=== PATIENT | male | born 1950 | race Caucasian/White ===

== ENCOUNTER 2016-09-01 06:26 | Day surgery (SDC) | payer OTHER ==
[~2016-09-01 06:26] MED LIST: KETOROLAC TROMETHAMINE 0.45% 4 DROP/0.4 ML DROPERETTE OS PRN
[2016-09-01] MEDS ORDERED: MIDAZOLAM 2 MG/2 ML INJ ONE ×2 (06:40)
[2016-09-01] MEDS ORDERED: FENTANYL CITRATE INJ/PF 100 MCG/2 ML AMPUL ONE (06:40)
[2016-09-01] MEDS: CYCLOPENTOLATE 0.2%/PHENYLEPHRINE 1% OPH SOLN 2 ML OS PRN ×3 (06:47→07:05)
[2016-09-01] MEDS: TETRACAINE HCL 0.5% OPH SOLN 2 ML OS PRN ×4 (06:47→07:36)
[2016-09-01] MEDS: TROPICAMIDE 1% OPH SOLN 3 ML OS PRN ×3 (06:47→07:06)
[2016-09-01] MEDS: BESIFLOXACIN HCL 0.6% OPH SUSP 5 ML BOTTLE OS PRN ×4 (06:47→08:00)
[2016-09-01] MEDS: EPINEPHRINE INJ/PF 1 MG/1 ML AMPULE ONE ×2 (07:46)
[2016-09-01] MEDS: LIDOCAINE 1% INJ-PF (10 MG/ML) 30 ML SDV ONE ×2 (07:46)
[2016-09-01] MEDS: CHONDR SU A NA/HYALUR INTRAOC KIT (SURGICARE) ONE ×2 (07:46)
--- NOTE | 2016-09-02 06:24 | [facility] OPERATIVE REPORT E ---
[facility] Operative Report NAME: JOB RODRIGUEZ AGE: 66Y DATE OF SURGERY: 09/01/2016 ROOM: PREOPERATIVE DIAGNOSIS: CATARACT, LEFT EYE. POSTOPERATIVE DIAGNOSIS: CATARACT, LEFT EYE. OPERATION: Cataract extraction with intraocular lens implant of the left eye. SURGEON: LAXMI GARCIA M.D. ANESTHESIA: Topical. PROCEDURE: After obtaining appropriate consent, the patient's left eye was prepped and draped in sterile fashion as well as the surgeon in a sterile manner and cataract surgery was started. First a paracentesis blade was used to make a small side-port incision. Viscoelastic was used to inflate the anterior chamber. Next a 2.4 mm incision was made with the paracentesis blade. A continuous capsulorrhexis incision was made using a cystotome and Utrata forceps. Following this hydrodissection was carried out to make the lens fully loose and mobile and it was rotated 90 degrees. Following this, a wxxazf-szx-xuhyvre technique was used to phacoemulsify the lens with a CDE of 15.6. The remaining cortex was removed with irrigation/aspiration. Provisc was instilled into the capsular bag to inflate the bag. A SN60WF, 19.5 diopter lens was placed. The remaining viscoelastic material was removed with irrigation/aspiration. Following this, a 10-0 nylon suture was used to close the incision and it was found to be watertight. Vigamox was instilled in the eye and a protective shield was placed over the eye. The patient returned to the postoperative recovery in stable condition. DICTATING PHYSICIAN: LAXMI GARCIA M.D. [id number] [id number] PHY#: [id number] ID: [id number] JOB#: [id number] ACCT: [id number] cc:LAXMI GARCIA M.D. >
--- NOTE | 2016-09-02 06:29 | [facility] DISCHARGE SUMMARY E ---
[facility] Discharge Summary NAME: JOB RODRIGUEZ AGE: 66Y ADMITTED: 09/01/2016 DISCHARGED: 09/01/2016 HOSPITAL COURSE: This is a 66-year-old male who underwent cataract extraction left eye, diagnosed as cataract left eye. He underwent surgery because he was having difficulty seeing road signs. He should be on a regular diet. No bending at the waist. No heavy lifting. He should his Besivance, Ilevro, and Durezol at 3 p.m. and 8 p.m. and sleep with a rigid shield, and I will see him for a one day postoperative tomorrow. DICTATING PHYSICIAN: LAXMI GARCIA M.D. [id number] [id number] PHY#: [id number] ID: [id number] JOB#: [id number] ACCT: [id number] cc:LAXMI GARCIA M.D. >
== END 2016-09-01 09:03 | disposition home or self-care (01) ==
LOC: SC 06:26
PROVIDERS: ATTEND Internal Medicine
PROC: 08RK3JZ Replacement of Left Lens with Synthetic Substitute, Percutaneous Approach (ICD-10-PCS; principal; 2016-09-01 07:30)
DX: H25.13 Age-related nuclear cataract, bilateral (principal); H40.033 Anatomical narrow angle, bilateral; E11.3291 Type 2 diabetes mellitus with mild nonproliferative diabetic retinopathy without macular edema, right eye; E11.3592 Type 2 diabetes mellitus with proliferative diabetic retinopathy without macular edema, left eye; E11.40 Type 2 diabetes mellitus with diabetic neuropathy, unspecified; H35.372 Puckering of macula, left eye; I10 Essential (primary) hypertension; E78.00 Pure hypercholesterolemia, unspecified; Z87.891 Personal history of nicotine dependence; Z79.82 Long term (current) use of aspirin; Z79.899 Other long term (current) drug therapy; Z79.84 Long term (current) use of oral hypoglycemic drugs; Z79.4 Long term (current) use of insulin; Z79.1 Long term (current) use of non-steroidal anti-inflammatories (NSAID)
CPT/HCPCS: 66984; 82962; V2632; J2250; J3490 ×2; J0171; J3010; 142

== ENCOUNTER 2016-09-01 10:50 | Emergency (ER) | payer OTHER ==
[2016-09-01] MEDS ORDERED: ASPIRIN 81 MG TABLET, CHEWABLE PO ONE (11:08)
--- NOTE | 2016-09-01 11:12 | ER Document Report ---
ED Medical Screen (RME) - General Chief Complaint: Chest Tightness Stated Complaint: CHEST PAIN Time Seen by Provider: 09/01/16 11:08 Notes: Patient says she has been experiencing heart tightness and hurting into the back region for the past month, off and on. He underwent cataract surgery this morning and was told that his heart was beating fast and irregular and he needed to come to the emergency department. Patient says he also is experiencing some shortness of breath. Has not had a cough or cold or chest congestion. No fevers. Patient is an insulin-dependent diabetic. Hypertension. High cholesterol. Enlarged heart. Stopped smoking 6 months ago. TRAVEL OUTSIDE OF THE [place] IN LAST 30 DAYS: No - Related Data Allergies/Adverse Reactions: No Known Allergies Allergy (Verified 09/01/16 10:51) Past Medical History - Past Medical History Cardiac Medical History: Reports: Hx Hypertension Denies: Hx Coronary Artery Disease, Hx Heart Attack Pulmonary Medical History: Reports: Hx Asthma - CHILD Denies: Hx Bronchitis, Hx COPD, Hx Pneumonia Neurological Medical History: Denies: Hx Cerebrovascular Accident, Hx Seizures Renal/ Medical History: Denies: Hx Peritoneal Dialysis GI Medical History: Denies: Hx Hepatitis, Hx Hiatal Hernia, Hx Ulcer Musculoskeltal Medical History: Reports Hx Arthritis - B/L SHOULDERS Infectious Medical History: Denies: Hx Hepatitis Past Surgical History: Denies: Hx Open Heart Surgery, Hx Pacemaker - Immunizations Hx Diphtheria, Pertussis, Tetanus Vaccination: Yes
--- NOTE | 2016-09-01 11:46 | ER Document Report ---
ED Cardiac - General Mode of Arrival: Ambulatory Information source: Patient TRAVEL OUTSIDE OF THE [place] IN LAST 30 DAYS: No - HPI Patient complains to provider of: Chest pain Associated symptoms: Other - See above <ORIN RESENDIZ - Last Filed: 09/01/16 12:23> <JADE MILLS - Last Filed: 09/01/16 19:38> - General Chief Complaint: Chest Pain > 30 Stated Complaint: CHEST PAIN Time Seen by Provider: 09/01/16 11:08 Notes: Patient is a 66 year old male, with a past medical history including hypertension, hypercholesterolemia, and diabetes, who presents to the emergency department with his girlfriend complaining of chest pain. Patient was having cataract surgery this morning at the surgery center and was noted to have a high resting heart rate of 105 bpm, patient was told he needed to be cleared before they could operate on the right eye after completing the left. Patient called his PCP and was told to come to the ED. Patient states he has been having chest pain for the past month that is accompanied by shortness of breath , patient reports this is sometimes exacerbated by exertion and is not relieved by rest. Patient describes the pain as burning and radiates into his back. Patient did skip his normal medications before his procedure this morning but has since taken them before arrival. Patient denies vomiting. (ORIN RESENDIZ) - Related Data Allergies/Adverse Reactions: No Known Allergies Allergy (Verified 09/01/16 10:51) Past Medical History - General Information source: Patient - Social History Smoking Status: Never Smoker Chew tobacco use (# tins/day): No Frequency of alcohol use: None Drug Abuse: None Family History: Reviewed & Not Pertinent Patient has suicidal ideation: No Patient has homicidal ideation: No - Past Medical History Cardiac Medical History: Reports: Hx Hypercholesterolemia, Hx Hypertension Pulmonary Medical History: Reports: Hx Asthma - CHILD Endocrine Medical History: Reports: Hx Diabetes Mellitus Type 2 Musculoskeltal Medical History: Reports Hx Arthritis - B/L SHOULDERS - Immunizations Hx Diphtheria, Pertussis, Tetanus Vaccination: Yes Hx Pneumococcal Vaccination: 03/30/14 <ORIN RESENDIZ - Last Filed: 09/01/16 12:23> Review of Systems - Review of Systems Constitutional: No symptoms reported EENT: No symptoms reported Cardiovascular: See HPI, Chest pain Respiratory: See HPI, Short of breath Gastrointestinal: denies: Vomiting Genitourinary: No symptoms reported Male Genitourinary: No symptoms reported Musculoskeletal: No symptoms reported Skin: No symptoms reported Hematologic/Lymphatic: No symptoms reported Neurological/Psychological: No symptoms reported -: Yes All other systems reviewed and negative <ORIN RESENDIZ - Last Filed: 09/01/16 12:23> Physical Exam <ORIN RESENDIZ - Last Filed: 09/01/16 12:23> <JADE MILLS - Last Filed: 09/01/16 19:38> - Vital signs Vitals: Resp Pulse Ox 15 95 09/01/16 11:22 09/01/16 11:22 - Notes Notes: GENERAL: Alert, interacts well. No acute distress. HEAD: Normocephalic, atraumatic. EYES: Left pupil round and dilated consistent with IOL replacement. Right pupil round and reactive to light. ENT: Oral mucosa moist, tongue midline. NECK: Full range of motion. Supple. Trachea midline. LUNGS: Clear to auscultation bilaterally, no wheezes, rales, or rhonchi. No respiratory distress. HEART: Regular rate and rhythm. Occasional ectopic beats. No murmurs, gallops, or rubs. ABDOMEN: Soft, non-tender. Non-distended. Bowel sounds present in all 4 quadrants. EXTREMITIES: Moves all 4 extremities spontaneously. No edema, radial and dorsalis pedis pulses 2/4 bilaterally. No cyanosis. NEUROLOGICAL: Alert and oriented x3. Normal speech. Biceps and patellar DTRs 2+ bilaterally. PSYCH: Normal affect, normal mood. SKIN: Mildly diaphoretic. Warm, normal turgor. No rashes or lesions noted. ( ORIN RESENDIZ) Course - Laboratory Result Diagrams: 09/01/16 11:53 09/01/16 11:53 <ORIN RESENDIZ - Last Filed: 09/01/16 12:23> - Laboratory Result Diagrams: 09/01/16 11:53 09/01/16 11:53 <JADE MILLS - Last Filed: 09/01/16 19:38> - Re-evaluation Re-evalutation: 09/01/16 17:49 CBC shows leukocytosis of 12.6, anemia with hemoglobin 13.3 otherwise unremarkable, CMP shows some renal failure with a BUN of 24 and creatinine of 1.49, patient is uncertain whether he has a history of renal failure but he does have a primary care physician with whom he will follow as an outpatient. The magnesium of 1.0 is likely what is causing his PVCs. Patient's magnesium was repleted here and he was sent home on magnesium supplements. Cardiac enzymes are negative 2, T4 slightly low but TSH and T3 are normal. PVCs have decreased significantly and almost completely resolved since repleting the magnesium. Patient has not had any further chest pain here. Patient is referred to his primary care physician for stress testing as an outpatient. Chest x-ray shows no acute process. (JADE MILLS) - Vital Signs Vital signs: Temp Pulse Resp BP Pulse Ox 13 129/60 H 94 09/01/16 17:01 09/01/16 18:01 09/01/16 18:01 - Laboratory Laboratory results interpreted by me: 09/01/16 09/01/16 09/01/16 11:53 11:53 11:53 WBC 12.6 H RBC 4.25 L Hgb 13.3 L Absolute Lymphocytes 5.1 H BUN 24 H Creatinine 1.49 H Est GFR ( Amer) 57 L Est GFR (Non-Af Amer) 47 L Glucose 204 H Magnesium 1.0 L* Alkaline Phosphatase 33 L Creatine Kinase 248 H Free T4 09/01/16 09/01/16 11:53 15:05 WBC RBC Hgb Absolute Lymphocytes BUN Creatinine Est GFR ( Amer) Est GFR (Non-Af Amer) Glucose Magnesium Alkaline Phosphatase Creatine Kinase 217 H Free T4 0.77 L - EKG Interpretation by Me Additional EKG results interpreted by me: 09/01/16 17:50 EKG shows sinus tachycardia at a rate of 122, first-degree AV block, left anterior hemiblock, multiple PVCs and eventually turns into ventricular bigeminy , poor R-wave progression, no ST segment elevations or depressions, isolated T- wave inversions noted in aVL per my interpretation. Repeat EKG shows sinus rhythm at a rate of 80, left anterior hemiblock, poor R- wave progression, no ST segment elevations or depressions, there are T-wave inversions isolated in aVL still, all PVCs have resolved. Per my interpretation. (JADE MILLS) Discharge <ORIN RESENDIZ - Last Filed: 09/01/16 12:23> <JADE MILLS - Last Filed: 09/01/16 19:38> - Discharge Clinical Impression: Ventricular bigeminy, Hypomagnesemia, Chest pain, moderate coronary artery risk Condition: Stable Disposition: HOME, SELF-CARE Additional Instructions: Please follow-up with your primary care physician regarding the ventricular bigeminy and PVCs that she had. It appears to be coming from a low level of magnesium. We have been giving you magnesium here and some magnesium to take at home to help with this. The irregular beats on your EKG stopped after we fixed your low magnesium. Your calcium levels and potassium levels were normal. You do have some evidence of slightly lower than normal kidney function. Your primary care physician will need to recheck this in a few days. Today your heart attack enzymes were negative both times we checked them. There were no signs of heart attack in your EKG. Your primary care physician will need to arrange to have you have a stress test as an outpatient. Please return to the emergency department should she develop severely worsening chest pain or any new or concerning symptoms. Prescriptions: Magnesium Oxide 400 mg PO BID #14 tablet Scribe Attestation: 09/01/16 19:38 I personally performed the services described in the documentation, reviewed and edited the documentation which was dictated to the scribe in my presence, and it accurately records my words and actions. (JADE MILLS) Scribe Documentation - Scribe Written by Raya:: raya Marina, 09/01/16, 1222 acting as scribe for :: Magdi <ORIN RESENDIZ - Last Filed: 09/01/16 12:23>
--- NOTE | 2016-09-01 12:10 | RADIOLOGY REPORT (SQ) ---
EXAM DESCRIPTION: CHEST SINGLE VIEW COMPLETED DATE/TIME: 09/01/2016 11:40 am REASON FOR STUDY: Chest pain and short of breath. COMPARISON: None. EXAM PARAMETERS: NUMBER OF VIEWS: One view. TECHNIQUE: Single frontal radiographic view of the chest acquired. RADIATION DOSE: NA LIMITATIONS: None. FINDINGS: LUNGS AND PLEURA: No opacities, masses or pneumothorax. No pleural effusion. MEDIASTINUM AND HILAR STRUCTURES: No masses. Contour normal. HEART AND VASCULAR STRUCTURES: Heart normal in size. Normal vasculature. BONES: No acute findings. HARDWARE: None in the chest. OTHER: No other significant finding. IMPRESSION: NO ACUTE RADIOGRAPHIC FINDING IN THE CHEST. TECHNICAL DOCUMENTATION: JOB ID: [id number]
[2016-09-01 12:13] LABS: ABSOLUTE BASOPHILS # (AUTO) 0.1 10^3/uL (0.0-0.2); ABSOLUTE EOSINOPHILS # (AUTO) 0.3 10^3/uL (0.0-0.6); ABSOLUTE LYMPHOCYTES (AUTO) 5.1 10^3/uL (0.5-4.7); ABSOLUTE MONOCYTES (AUTO) 0.8 10^3/uL (0.1-1.4); ABSOLUTE NEUT (AUTO) 6.4 10^3/uL (1.7-8.2); BASOPHILS % (AUTO) 0.8 % (0-2); EOSINOPHILS % (AUTO) 2.1 % (0-6); HEMATOCRIT 40.1 % (37.9-51.0); HEMOGLOBIN 13.3 g/dL (13.5-17.0); HGB HCT DIFFERENCE -0.2; LYMPHOCYTES % (AUTO) 40.4 % (13-45); MEAN CORPUSCULAR HEMOGLOBIN 31.4 pg (27.0-33.4); MEAN CORPUSCULAR HGB CONC 33.2 g/dL (32.0-36.0); MEAN CORPUSCULAR VOLUME 95 fl (80-97); MONOCYTES % (AUTO) 6.3 % (3-13); RED BLOOD COUNT 4.25 10^6/uL (4.35-5.55); RED CELL DISTRIBUTION WIDTH 12.2 % (11.5-14.0); SEGMENTED NEUTROPHILS % (AUTO) 50.4 % (42-78); WHITE BLOOD COUNT 12.6 10^3/uL (4.0-10.5)
[2016-09-01 12:27] LABS: ALANINE AMINOTRANSFERASE 38 U/L (21-72); ALBUMIN 4.4 g/dL (3.5-5.0); ALKALINE PHOSPHATASE 33 U/L (38-126); ANION GAP 15 (5-19); ASPARTATE AMINO TRANSFERASE 30 U/L (17-59); BILIRUBIN,DIRECT 0.4 mg/dL (0.0-0.4); BILIRUBIN,TOTAL 0.5 mg/dL (0.2-1.3); BLOOD UREA NITROGEN 24 mg/dL (7-20); CALCIUM 9.2 mg/dL (8.4-10.2); CARBON DIOXIDE 24 mmol/L (22-30); CHLORIDE 102 mmol/L (98-107); CREATINE KINASE 248 U/L (55-170); CREATININE RESULT 1.49 mg/dL (0.52-1.25); GLUCOSE 204 mg/dL (75-110); POTASSIUM 4.5 mmol/L (3.6-5.0); SODIUM 140.5 mmol/L (137-145); TOTAL PROTEIN 7.4 g/dL (6.3-8.2)
[2016-09-01 12:38] LABS: CREATINE KINASE MB 2.84 ng/mL (<4.55); TROPONIN I 0.024 ng/mL
[2016-09-01 12:42] LABS: FREE T3 4.21 pg/mL (2.77-5.27)
[2016-09-01 12:55] LABS: THYROID STIMULATING HORMONE 3.1 uIU/mL (0.47-4.68)
[2016-09-01] MEDS: MAGNESIUM SULFATE/D5W 100 ML IV SCH ×2 (13:37→15:00)
--- NOTE | 2016-09-01 18:09 | EKG REPORT ---
SEVERITY:- ABNORMAL ECG - SINUS RHYTHM LEFT ANTERIOR FASCICULAR BLOCK NONSPECIFIC ST-T CHANGES LATERAL LEADS : Confirmed by: Vineet Lyon MD 01-Sep-2016 18:08:40
--- NOTE | 2016-09-01 18:10 | EKG REPORT ---
SEVERITY:- ABNORMAL ECG - SINUS TACHYCARDIA VENTRICULAR BIGEMINY FIRST DEGREE AV BLOCK LEFT ANTERIOR FASCICULAR BLOCK : Confirmed by: Vineet Lyon MD 01-Sep-2016 18:09:27
[2016-09-01 18:25] VITALS: BP 129/60
== END 2016-09-01 18:25 | disposition home or self-care (01) ==
LOC: ER 10:50
DX: R00.8 Other abnormalities of heart beat (principal); E83.42 Hypomagnesemia; R07.9 Chest pain, unspecified; I10 Essential (primary) hypertension; E78.00 Pure hypercholesterolemia, unspecified; E11.9 Type 2 diabetes mellitus without complications
CPT/HCPCS: 93005; 99285; 96365; 96366; 36415; 84439; 82553; 82550; 83735; 84443; 85025; 80053; 84484; 84481; 71010; 93010; J3475

== ENCOUNTER → 2016-10-25 | Outpatient (CLI) | payer OTHER ==
[~2016-10-25] MED LIST changes: -KETOROLAC TROMETHAMINE 0.45% 4 DROP/0.4 ML DROPERETTE OS PRN; +REGADENOSON INJ 0.4 MG/5 ML DISP.SYRIN IV ONE
--- NOTE | 2016-10-26 18:21 | RADIOLOGY REPORT ---
STRESS TEST REPORT PATIENT NAME: JOB RODRIGUEZ ROOM#: DATE OF SERVICE: 10/25/2016 AGE: 66Y ORDER#: [id number] REFERRING MD: RAYSA RODRIGUEZ, PT, IN CLINIC INDICATION: Assessment of chest pains. PROCEDURE PERFORMED: Rest/stress single-isotope Cardiolite SPECT imaging with an IV Lexiscan stress and gated SPECT imaging. CLINICAL HISTORY: This is a 66-year-old male with no known coronary artery disease. Patient has cardiac risk factors of diabetes, hypertension and hypercholesterolemia, currently complains of chest pains. REPORT: Patient received IV Lexiscan 0.4 mg infused over 10 seconds and flushed. The resting heart rate was 95 BPM and increased to 100 BPM at end infusion. The resting blood pressure was 122/65 and increased to 161/58 at end infusion. The patient absolutely no symptoms. The resting 12-lead EKG showed sinus rhythm with frequent PVCs, 10-56 per minute. First degree AV block with left anterior fascicular block, no ST changes. At end infusion, no ST changes were seen, PVC remained basically the same. Myocardial perfusion imaging was performed at rest 60 minutes following the injection of 14.96 mCi of Cardiolite. Repeat scanning of rest images had to be done due to patient falling asleep and heart rate going down to bradycardia. Ten seconds after the IV Lexiscan injection, patient was injected with 46.8 mCi of Cardiolite and flushed. Gated post-stress tomographic imaging was performed 60 minutes after stress. FINDINGS: The overall quality of the study is poor. The left ventricular cavity is noted to be enlarged more on the stress than the rest, there is transient ischemic dilatation of the left ventricle. The SPECT images showed a moderate area of moderate reversible ischemia in the anterior wall (diagonal territory), there is a small area of moderate reversible ischemia also seen in the apex of the left ventricle. There is a moderate area of moderately fixed perfusion defect in the basal inferior wall. The gated SPECT imaging showed moderate reduced motion contraction in the basal inferior wall. The left ventricular ejection fraction is calculated to be 41%. IMPRESSION: Myocardial perfusion imaging is abnormal. There is evidence of transient ischemic dilatation of the left ventricle. This suggests triple vessel disease or critical stenosis of a coronary artery. There are two areas of moderate reversible ischemia, one in the anterior wall and one in the apex. There is a moderate area of moderately fixed perfusion defect in the basal inferior wall. The overall left ventricular systolic function was mildly impaired at LVEF 41% with reduced motion and contraction in the base of the inferior wall. No prior studies for comparison. INTERPRETING PHYSICIAN: JOSE R COREAS M.D. /: 1951M TT: [id number] ID: [id number] /: [id number] TD: [id number] JOB: [id number] cc:Karyna [facility] > [facility]
== END ==
LOC: RAD 06:35
PROVIDERS: ATTEND Physical Therapist
DX: R07.89 Other chest pain (principal); I10 Essential (primary) hypertension; E78.00 Pure hypercholesterolemia, unspecified
CPT/HCPCS: 93017; 78452; A9500; J2785; Q9969

== ENCOUNTER → 2017-06-23 | Outpatient (CLI) | payer OTHER ==
[2017-06-23 12:14] LABS: ABSOLUTE BASOPHILS # (AUTO) 0.1 10^3/uL (0.0-0.2); ABSOLUTE EOSINOPHILS # (AUTO) 0.2 10^3/uL (0.0-0.6); ABSOLUTE LYMPHOCYTES (AUTO) 2.9 10^3/uL (0.5-4.7); ABSOLUTE MONOCYTES (AUTO) 0.6 10^3/uL (0.1-1.4); BASOPHILS % (AUTO) 0.6 % (0-2); EOSINOPHILS % (AUTO) 2.2 % (0-6); HEMATOCRIT 42.4 % (37.9-51.0); HEMOGLOBIN 14.4 g/dL (13.5-17.0); LYMPHOCYTES % (AUTO) 26.7 % (13-45); MEAN CORPUSCULAR HEMOGLOBIN 31.4 pg (27.0-33.4); MEAN CORPUSCULAR HGB CONC 33.8 g/dL (32.0-36.0); MEAN CORPUSCULAR VOLUME 93 fl (80-97); MONOCYTES % (AUTO) 5.9 % (3-13); PLATELET COUNT 248 10^3/uL (150-450); RED BLOOD COUNT 4.57 10^6/uL (4.35-5.55); RED CELL DISTRIBUTION WIDTH 12.8 % (11.5-14.0); SEGMENTED NEUTROPHILS % (AUTO) 64.6 % (42-78); TOTAL CELLS COUNTED % (AUTO) 100 %; WHITE BLOOD COUNT 10.8 10^3/uL (4.0-10.5)
[2017-06-23 12:17] LABS: INTERNATIONAL RATION (INR) 0.84; PROTHROMBIN TIME 11.9 SEC (11.4-15.4)
[2017-06-23 12:33] LABS: ANION GAP 14 (5-19); BLOOD UREA NITROGEN 20 mg/dL (7-20); CARBON DIOXIDE 30 mmol/L (22-30); CHLORIDE 98 mmol/L (98-107); GLUCOSE 223 mg/dL (75-110); POTASSIUM 5.3 mmol/L (3.6-5.0); SODIUM 141.5 mmol/L (137-145)
== END ==
LOC: OD 11:13
PROVIDERS: ATTEND Internal Medicine
DX: I25.118 Atherosclerotic heart disease of native coronary artery with other forms of angina pectoris (principal); I10 Essential (primary) hypertension; E78.4 Other hyperlipidemia; R07.2 Precordial pain; R06.02 Shortness of breath; E11.8 Type 2 diabetes mellitus with unspecified complications; R94.30 Abnormal result of cardiovascular function study, unspecified; Z79.899 Other long term (current) drug therapy
CPT/HCPCS: 36415; 80051; 82565; 82947; 83735; 84520; 85025; 85610; 85730

== ENCOUNTER 2018-01-25 07:45 | Day surgery (SDC) | payer OTHER ==
[~2018-01-25 07:45] MED LIST changes: +KETOROLAC TROMETHAMINE 0.45% 4 DROP/0.4 ML DROPERETTE OD PRN; +LIDOCAINE 1% INJ-PF (10 MG/ML) 30 ML SDV ONE; +MIDAZOLAM 2 MG/2 ML INJ ONE; -REGADENOSON INJ 0.4 MG/5 ML DISP.SYRIN IV ONE
[2018-01-25] MEDS: BESIFLOXACIN HCL 0.6% OPH SUSP 5 ML BOTTLE OD PRN ×4 (07:49→08:49)
[2018-01-25] MEDS: CYCLOPENTOLATE 0.2%/PHENYLEPHRINE 1% OPH SOLN 2 ML OD PRN ×3 (07:49→08:09)
[2018-01-25] MEDS: TROPICAMIDE 1% OPH SOLN 3 ML OD PRN ×3 (07:49→08:09)
[2018-01-25] MEDS: TETRACAINE HCL 0.5% OPH SOLN 4 ML OD PRN ×4 (07:50→08:23)
[2018-01-25] MEDS: CHONDR SU A NA/HYALUR INTRAOC KIT (SURGICARE) ONE ×2 (08:09→08:37)
[2018-01-25] MEDS: LIDOCAINE 1%/PHENYLEPHRINE 1.5% 1 ML VIAL ONE ×2 (08:10→08:37)
[2018-01-25] MEDS: EPINEPHRINE INJ/PF 1 MG/1 ML AMPULE ONE ×2 (08:10→08:37)
--- NOTE | 2018-01-25 19:51 | [facility] OPERATIVE REPORT E ---
[facility] Operative Report NAME: JOB RODRIGUEZ AGE: 67Y DATE OF SURGERY: 01/25/2018 ROOM: PREOPERATIVE DIAGNOSIS: CATARACT, RIGHT EYE. POSTOPERATIVE DIAGNOSIS: CATARACT, RIGHT EYE. OPERATION: Cataract extraction with insertion of an IOL of the right eye. SURGEON: LAXMI GARCIA M.D. ANESTHESIA: Topical. PROCEDURE: After obtaining appropriate consent, the patient's right eye was prepped and draped in sterile fashion as well as the surgeon in a sterile manner and cataract surgery was started. First a paracentesis blade was used to make a side-port incision. Viscoelastic was used to inflate the anterior chamber. Next a 2.4 mm incision was made with a 2.4 mm blade, clear corneal temporally. A continuous capsulorrhexis was made using a cystotome and Utrata forceps. Following this hydrodissection was carried out to make the lens fully loose and mobile and it was rotated 90 degrees. Following this, a nqpevr-qiu-nojpdkv technique was used to phacoemulsify the lens with a CDE of 8.98. The remaining cortex was removed with irrigation/aspiration. Provisc was instilled into the capsular bag to inflate the bag. A SN60WF, 20.0 diopter lens was placed. The remaining viscoelastic material was removed with irrigation/aspiration. Following this, the incision was found to be watertight. Besivance was instilled into the eye and a protective shield was placed over the eye. The patient returned to the postoperative recovery in stable condition. DICTATING PHYSICIAN: LAXMI GARCIA M.D. [id number] [id number] PHY#: [id number] ID: [id number] JOB#: [id number] ACCT: [id number] cc:LAXMI GARCIA M.D. >
--- NOTE | 2018-01-25 19:53 | [facility] DISCHARGE SUMMARY E ---
[facility] Discharge Summary NAME: JOB RODRIGUEZ AGE: 67Y ADMITTED: 01/25/2018 DISCHARGED: 01/25/2018 DIAGNOSIS: Cataract, right eye. SUMMARY: This is a 67-year-old male who underwent cataract extraction, right eye. He underwent surgery because he was having difficulty seeing road signs and small print. DISCHARGE INSTRUCTIONS: He should be on a regular diet, no bending at his waist, and no heavy lifting. He should use his Pred Forte, Ketorolac, and Vigamox at 3 p.m. and 8 p.m. and sleep with a rigid shield. I will see him for his 1-day postoperative tomorrow. DICTATING PHYSICIAN: LAXMI GARCIA M.D. [id number] [id number] PHY#: [id number] ID: [id number] JOB#: [id number] ACCT: [id number] cc:LAXMI GARCIA M.D. >
== END 2018-01-25 09:35 | disposition home or self-care (01) ==
LOC: SC 07:45
PROVIDERS: ATTEND Internal Medicine
DX: H25.11 Age-related nuclear cataract, right eye (principal); I10 Essential (primary) hypertension; E78.00 Pure hypercholesterolemia, unspecified; E11.40 Type 2 diabetes mellitus with diabetic neuropathy, unspecified; Z72.0 Tobacco use; Z79.84 Long term (current) use of oral hypoglycemic drugs
CPT/HCPCS: 82962; 66984; V2632; J2250; J3490 ×2; J0171; J2370; 142

== ENCOUNTER 2018-07-07 18:20 | Emergency (ER) | payer OTHER ==
--- NOTE | 2018-07-07 18:40 | ER Document Report ---
ED Medical Screen (RME) - General Chief Complaint: Leg Swelling Stated Complaint: FOOT PAIN Time Seen by Provider: 07/07/18 18:35 Primary Care Provider: EVY HAWTHORNE FNP [Primary Care Provider] - Follow up as needed Mode of Arrival: Ambulatory Information source: Patient Notes: Patient is a 68-year-old male presenting with chief complaint of pain, swelling and redness to his left foot. Patient reports he is a diabetic and has diabetic neuropathy. He also states that he fell off of a 6 foot ladder approximately 10 days ago when all of the pain and swelling first started. He states he was standing towards the top of the ladder when he fell. Patient denies seeking any medical treatment at this time. Patient reports pain now radiates from his foot up into his upper leg. He denies any history of DVTs or PEs, he is denies any recent travel. Exam: Significant swelling and erythema noted to left foot. I have greeted and performed a rapid initial assessment of this patient. A comprehensive ED assessment and evaluation of the patient, analysis of test results and completion of the medical decision making process will be conducted by additional ED providers. Dictation of this chart was performed using voice recognition software; therefore, there may be some unintended grammatical errors. TRAVEL OUTSIDE OF THE [place] IN LAST 30 DAYS: No - Related Data Allergies/Adverse Reactions: No Known Allergies Allergy (Verified 01/16/18 13:03) Past Medical History - Past Medical History Cardiac Medical History: Reports: Hx Hypercholesterolemia, Hx Hypertension Denies: Hx Coronary Artery Disease, Hx Heart Attack Pulmonary Medical History: Reports: Hx Asthma - CHILD Denies: Hx Bronchitis, Hx COPD, Hx Pneumonia Neurological Medical History: Denies: Hx Cerebrovascular Accident, Hx Seizures Endocrine Medical History: Reports: Hx Diabetes Mellitus Type 2 Renal/ Medical History: Denies: Hx Peritoneal Dialysis GI Medical History: Denies: Hx Hepatitis, Hx Hiatal Hernia, Hx Ulcer Musculoskeltal Medical History: Reports Hx Arthritis - B/L SHOULDERS Infectious Medical History: Denies: Hx Hepatitis Past Surgical History: Denies: Hx Open Heart Surgery, Hx Pacemaker - Immunizations Hx Diphtheria, Pertussis, Tetanus Vaccination: Yes Physical Exam - Vital signs Vitals: Temp Pulse Resp BP Pulse Ox 98.6 F 104 H 20 145/60 H 95 07/07/18 18:31 07/07/18 18:31 07/07/18 18:31 07/07/18 18:31 07/07/18 18:31 Course - Vital Signs Vital signs: Temp Pulse Resp BP Pulse Ox 98.6 F 104 H 20 145/60 H 95 07/07/18 18:31 07/07/18 18:31 07/07/18 18:31 07/07/18 18:31 07/07/18 18:31 Doctor's Discharge - Discharge Referrals: EVY HAWTHORNE FNP [Primary Care Provider] - Follow up as needed
[2018-07-07 18:59] LABS: ABSOLUTE BASOPHILS # (AUTO) 0.2 10^3/uL (0.0-0.2); ABSOLUTE EOSINOPHILS # (AUTO) 0.3 10^3/uL (0.0-0.6); ABSOLUTE LYMPHOCYTES (AUTO) 2.2 10^3/uL (0.5-4.7); ABSOLUTE MONOCYTES (AUTO) 0.8 10^3/uL (0.1-1.4); BASOPHILS % (AUTO) 1.5 % (0-2); EOSINOPHILS % (AUTO) 2.1 % (0-6); HEMATOCRIT 33.7 % (37.9-51.0); HEMOGLOBIN 11.4 g/dL (13.5-17.0); LYMPHOCYTES % (AUTO) 17.7 % (13-45); MEAN CORPUSCULAR HGB CONC 33.7 g/dL (32.0-36.0); MEAN CORPUSCULAR VOLUME 95 fl (80-97); MONOCYTES % (AUTO) 6.7 % (3-13); PLATELET COUNT 350 10^3/uL (150-450); RED BLOOD COUNT 3.55 10^6/uL (4.35-5.55); RED CELL DISTRIBUTION WIDTH 12.7 % (11.5-14.0); TOTAL CELLS COUNTED % (AUTO) 100 %; WHITE BLOOD COUNT 12.5 10^3/uL (4.0-10.5)
--- NOTE | 2018-07-07 19:09 | RADIOLOGY REPORT (SQ) ---
EXAM DESCRIPTION: FOOT LEFT COMPLETE COMPLETED DATE/TIME: 07/07/2018 6:49 pm REASON FOR STUDY: pain, erythema, swelling, hx of fall . Pain lateral foot status post fall 10 day s ago COMPARISON: None. NUMBER OF VIEWS: Three views. TECHNIQUE: AP, lateral and oblique radiographic images acquired of the left foot. LIMITATIONS: None. FINDINGS: MINERALIZATION: Normal. BONES: There is a displaced fracture at the base of the 1st metatarsal. There is widening between th e bases of the 1st and 2nd metatarsals, suggestive of Lisfranc injury. There is a displaced comminut ed fracture at the base of the 2nd metatarsal. Linear lucency at the base of the 3rd metatarsal, sug gestive of a nondisplaced fracture. There is a mildly displaced fracture at the base of the 4th meta tarsal. There is a mildly displaced fracture at the base of the 5th metatarsal. There is a linear l ucency at the cuboid. Degenerative changes are seen at the 1st interphalangeal joint and metatarsophalangeal joint. Degene rative changes are also seen at the midfoot and hindfoot. There is calcaneal enthesopathy. There is a healed fracture of the distal fibula. SOFT TISSUES: There is diffuse soft tissue swelling. IMPRESSION: Fractures at the bases of the 1st, 2nd, 3rd, 4th and 5th metatarsals with Lisfranc injur y. Linear lucency at the cuboid, a nondisplaced fracture cannot be excluded. Diffuse soft tissue sw elling at the left foot. TECHNICAL DOCUMENTATION: JOB ID: [id number] [id number] 2010 [employer]- All Rights Reserved Reading location - IP/workstation name: [email or web address]
[2018-07-07 19:26] LABS: ALANINE AMINOTRANSFERASE 34 U/L (21-72); ALBUMIN 4.2 g/dL (3.5-5.0); ALKALINE PHOSPHATASE 38 U/L (38-126); ANION GAP 16 (5-19); ASPARTATE AMINO TRANSFERASE 33 U/L (17-59); BILIRUBIN,DIRECT 0.3 mg/dL (0.0-0.4); BILIRUBIN,TOTAL 0.4 mg/dL (0.2-1.3); BLOOD UREA NITROGEN 50 mg/dL (7-20); CALCIUM 9.6 mg/dL (8.4-10.2); CARBON DIOXIDE 26 mmol/L (22-30); CHLORIDE 96 mmol/L (98-107); GLUCOSE 308 mg/dL (75-110); POTASSIUM 4.9 mmol/L (3.6-5.0); SODIUM 138.2 mmol/L (137-145); TOTAL PROTEIN 7.2 g/dL (6.3-8.2)
--- NOTE | 2018-07-07 20:11 | ER Document Report ---
ED General - General Chief Complaint: Leg Swelling Stated Complaint: FOOT PAIN Time Seen by Provider: 07/07/18 18:35 Primary Care Provider: EVY HAWTHORNE FNP [Primary Care Provider] - Follow up as needed MARTHA OVALLES DO [ACTIVE STAFF] - 07/09/18 Mode of Arrival: Ambulatory Notes: Patient is a 68-year-old male with past medical history of diabetes, hypertension, peripheral neuropathy who presents with 10 days of swelling and pain to the left foot. The patient reports that this pain started after he fell into a ditch by the mailbox in the front of his house. He then states he fell again while climbing a ladder falling approximately 6 feet and landing on his feet. He states the pain was quite mild but has continued to be global, throbbing, constant discomfort mild in nature to the entirety of the left foot. Has continued to walk on the foot normally. No obvious worsening factors to his pain. Denies any injury to any of the occasion. Came to the emergency department today at the behest of his who is concerned about the degree of swelling and that this is not improving. Has not seen his primary care doctor regarding today's concerns. TRAVEL OUTSIDE OF THE [place] IN LAST 30 DAYS: No - Related Data Allergies/Adverse Reactions: No Known Allergies Allergy (Verified 01/16/18 13:03) Past Medical History - General Information source: Patient - Social History Smoking Status: Never Smoker Frequency of alcohol use: None Drug Abuse: None Lives with: Spouse/Significant other Family History: Reviewed & Not Pertinent Patient has suicidal ideation: No Patient has homicidal ideation: No - Past Medical History Cardiac Medical History: Reports: Hx Hypercholesterolemia, Hx Hypertension Denies: Hx Coronary Artery Disease, Hx Heart Attack Pulmonary Medical History: Reports: Hx Asthma - CHILD Denies: Hx Bronchitis, Hx COPD, Hx Pneumonia Neurological Medical History: Denies: Hx Cerebrovascular Accident, Hx Seizures Endocrine Medical History: Reports: Hx Diabetes Mellitus Type 2 Renal/ Medical History: Denies: Hx Peritoneal Dialysis GI Medical History: Denies: Hx Hepatitis, Hx Hiatal Hernia, Hx Ulcer Musculoskeletal Medical History: Reports Hx Arthritis - B/L SHOULDERS Infectious Medical History: Denies: Hx Hepatitis Past Surgical History: Denies: Hx Open Heart Surgery, Hx Pacemaker - Immunizations Hx Diphtheria, Pertussis, Tetanus Vaccination: Yes Hx Pneumococcal Vaccination: 03/30/14 Review of Systems - Review of Systems Notes: Constitutional: Negative for fever. HENT: Negative for sore throat. Eyes: Negative for visual changes. Cardiovascular: Negative for chest pain. Respiratory: Negative for shortness of breath. Gastrointestinal: Negative for abdominal pain, vomiting or diarrhea. Genitourinary: Negative for dysuria. Musculoskeletal: Positive for left foot pain and swelling Skin: Negative for rash. Neurological: Negative for headaches, weakness or numbness. 10 point ROS negative except as marked above and in HPI. Physical Exam - Vital signs Vitals: Temp Pulse Resp BP Pulse Ox 98.6 F 104 H 20 145/60 H 95 07/07/18 18:31 07/07/18 18:31 07/07/18 18:31 07/07/18 18:31 07/07/18 18:31 Interpretation: Hypertensive, Tachycardic Notes: PHYSICAL EXAMINATION: GENERAL: Well-appearing, well-nourished and in no acute distress. HEAD: Atraumatic, normocephalic. EYES: Pupils equal round and reactive to light, extraocular movements intact, sclera anicteric, conjunctiva are normal. ENT: nares patent, oropharynx clear without exudates. Moist mucous membranes. NECK: Normal range of motion, supple without lymphadenopathy LUNGS: Breath sounds clear to auscultation bilaterally and equal. No wheezes rales or rhonchi. HEART: Regular rate and rhythm without murmurs, 2+ DP pulses bilaterally ABDOMEN: Soft, nontender, normoactive bowel sounds. No guarding, no rebound. No masses appreciated. EXTREMITIES: There is marked swelling over the mid dorsum of the left foot. Patient has full dorsi and plantar flexion of all toes of the left foot as well as dorsi and plantarflexion of the ankle. NEUROLOGICAL: No focal neurological deficits. Moves all extremities spontaneously and on command. PSYCH: Normal mood, normal affect. SKIN: Warm, Dry, normal turgor, diffuse swelling and erythema over the dorsum of the left midfoot Course - Re-evaluation Re-evalutation: 07/07/18 20:05 Patient presents after a fall 10 days ago sustaining a Lisfranc fracture and fractures of all metatarsals of the left foot. He may also have a cuboid fracture. Unfortunately the patient has such advanced peripheral neuropathy that he has not been able to feel this injury at all and has been walking around on the fracture for at least 10 days. I have immediately advised patient to stop all weightbearing. I have been placed in a short leg posterior splint and I have contacted orthopedic surgeon at [facility] to arrange for close follow-up. Patient does have good capillary refill, 2+ DP pulse. Neurovascular intact. 07/07/18 20:20 I discussed this case with Dr. Dean from [facility] orthopedic surgery. He states the patient can follow-up in the clinic early next week. I provided the patient with this contact information. Patient has been placed in a short leg posterior splint, has been strongly emphasized that he is not to bear weight. I also emphasized the need for close follow-up on Mo nday. At this time will discharge with return precautions and follow-up recommendations. Verbal discharge instructions given a the bedside and opportunity for questions given. Medication warnings reviewed. Patient is in agreement with this plan and has verbalized understanding of return precautions and the need for orthopedic surgical follow-up early next week. - Vital Signs Vital signs: Temp Pulse Resp BP Pulse Ox 98.4 F 100 20 140/59 H 94 07/07/18 21:09 07/07/18 21:09 07/07/18 21:09 07/07/18 21:09 07/07/18 21:09 - Laboratory Result Diagrams: 07/07/18 18:48 07/07/18 18:48 Laboratory results interpreted by me: 07/07/18 07/07/18 18:48 18:48 WBC 12.5 H RBC 3.55 L Hgb 11.4 L Hct 33.7 L Absolute Neutrophils 9.0 H Chloride 96 L BUN 50 H Creatinine 2.68 H Est GFR ( Amer) 29 L Est GFR (Non-Af Amer) 24 L Glucose 308 H - Diagnostic Test Radiology reviewed: Image reviewed, Reports reviewed Radiology results interpreted by me: 07/07/18 20:11 Left foot x-ray: Fractures of all metatarsals of the left foot with associated Lisfranc fracture Procedures - Immobilization Left Foot Pre-Proc Neuro Vasc Exam: Normal Immobilizer type: Short Leg Posterior Performed by: Provider assisted Post-Proc Neuro Vasc Exam: Normal Alignment checked and good: Yes Discharge - Discharge Clinical Impression: Lisfranc fracture Multiple closed fractures of metatarsal bone Qualifiers: Encounter type: initial encounter Laterality: left Qualified Code(s): S92.302A - Fracture of unspecified metatarsal bone(s), left foot, initial encounter for closed fracture Condition: Stable Disposition: HOME, SELF-CARE Additional Instructions: You need to follow-up with orthopedic surgery early next week. I have spoken to Dr. Dean on with orthopedic surgeons with [facility]. He states that you can contact the clinic at [phone]. Address is [address] [place] [address] in [facility]. I have also included contact information for our local orthopedic surgeons who may also be able to see you e chrystal next week. Do not bear weight on your foot anytime to any degree. Keep the splint on until you are seen by orthopedic surgery. Return for increasing pain, increasing swelling or deformity to the area, or any other symptoms that are worrisome to you. Referrals: EVY HAWTHORNE FNP [Primary Care Provider] - Follow up as needed MARTHA OVALLES DO [ACTIVE STAFF] - 07/09/18
[2018-07-07 21:13] VITALS: BP 140/59
== END 2018-07-07 21:13 | disposition home or self-care (01) ==
LOC: ER 18:20
PROC: 2W3RX1Z Immobilization of Left Lower Leg using Splint (ICD-10-PCS; principal; 2018-07-07)
DX: S93.326A Dislocation of tarsometatarsal joint of unspecified foot, initial encounter (principal); S92.302A Fracture of unspecified metatarsal bone(s), left foot, initial encounter for closed fracture; M79.89 Other specified soft tissue disorders; M79.672 Pain in left foot; W19.XXXA Unspecified fall, initial encounter; I10 Essential (primary) hypertension; E11.42 Type 2 diabetes mellitus with diabetic polyneuropathy; J45.909 Unspecified asthma, uncomplicated
CPT/HCPCS: 36415; 80053; 85025; 99283

== ENCOUNTER 2018-07-13 16:36 | Emergency (ER) | payer OTHER, MEDICARE ==
[2018-07-13 16:45] VITALS: BP 164/81
--- NOTE | 2018-07-13 17:19 | ER Document Report ---
ED Medical Screen (RME) - General Chief Complaint: Foot Injury Stated Complaint: FOOT INJURY Time Seen by Provider: 07/13/18 17:11 Primary Care Provider: LOY JONAS MD [NO LOCAL MD] - Follow up as needed Mode of Arrival: Wheelchair Information source: Patient Notes: 68-year-old male presented to ED for follow-up on his Lisfranc fracture to his left foot on 07/07/2018. He states he has been walking on his foot on the heel of the foot and noted to go to the bathroom. He states he misunderstood the instructions that he needed to follow-up with Dr. Jonas in [place] and tried to go to [facility] for surgery. They told him that he could not have the surgery done at their facility he needed to go to [place]. He has returned today for treatment. I have consulted Dr. Telles who is speaking with the patient at this time. TRAVEL OUTSIDE OF THE [place] IN LAST 30 DAYS: No - Related Data Allergies/Adverse Reactions: No Known Allergies Allergy (Verified 07/13/18 16:36) Past Medical History - Social History Frequency of alcohol use: None Drug Abuse: None - Past Medical History Cardiac Medical History: Reports: Hx Hypercholesterolemia, Hx Hypertension Denies: Hx Coronary Artery Disease, Hx Heart Attack Pulmonary Medical History: Reports: Hx Asthma - CHILD Denies: Hx Bronchitis, Hx COPD, Hx Pneumonia Neurological Medical History: Denies: Hx Cerebrovascular Accident, Hx Seizures Endocrine Medical History: Reports: Hx Diabetes Mellitus Type 2 Renal/ Medical History: Denies: Hx Peritoneal Dialysis GI Medical History: Denies: Hx Hepatitis, Hx Hiatal Hernia, Hx Ulcer Musculoskeltal Medical History: Reports Hx Arthritis - B/L SHOULDERS Infectious Medical History: Denies: Hx Hepatitis Past Surgical History: Denies: Hx Open Heart Surgery, Hx Pacemaker - Immunizations Hx Diphtheria, Pertussis, Tetanus Vaccination: Yes Physical Exam - Vital signs Vitals: Temp Pulse Resp BP Pulse Ox 99.2 F 93 15 164/81 H 95 07/13/18 16:44 07/13/18 16:44 07/13/18 16:44 07/13/18 16:44 07/13/18 16:44 Course - Vital Signs Vital signs: Temp Pulse Resp BP Pulse Ox 99.2 F 93 15 164/81 H 95 07/13/18 16:44 07/13/18 16:44 07/13/18 16:44 07/13/18 16:44 07/13/18 16:44 Doctor's Discharge - Discharge Clinical Impression: Lisfranc fracture Condition: Good Disposition: HOME, SELF-CARE Additional Instructions: Please use crutches. No weight bearing to the affected foot. Please make an a ppointment with the orthopedic surgeons as instructed as this will require outpatient follow-up. It may take several weeks for you to get an appointment. Until then it is still non weight bearing. Referrals: LOY JONAS MD [NO LOCAL MD] - Follow up as needed
--- NOTE | 2018-07-13 18:01 | RADIOLOGY REPORT (SQ) ---
EXAM DESCRIPTION: ANKLE LEFT COMPLETE COMPLETED DATE/TIME: 07/13/2018 5:53 pm REASON FOR STUDY: Fracture 07/07 has not had follow-up yet COMPARISON: None. NUMBER OF VIEWS: Three views. TECHNIQUE: AP, lateral, and oblique radiographic images acquired of the left ankle. LIMITATIONS: None. FINDINGS: MINERALIZATION: Normal. BONES: There is slight deformity of the distal fibula suggesting a prior injury. There is a transver se fracture of the base of the 5th metatarsal. JOINTS: No effusions. SOFT TISSUES: No soft tissue swelling. No foreign body. OTHER: No other significant finding. IMPRESSION: 5th metatarsal fracture. TECHNICAL DOCUMENTATION: JOB ID: [id number] [employer]- All Rights Reserved Reading location - IP/workstation name: [email or web address]
--- NOTE | 2018-07-13 18:04 | RADIOLOGY REPORT (SQ) ---
EXAM DESCRIPTION: FOOT LEFT COMPLETE COMPLETED DATE/TIME: 07/13/2018 5:53 pm REASON FOR STUDY: Fracture 07/07 has not had follow-up yet COMPARISON: None. NUMBER OF VIEWS: Three views. TECHNIQUE: AP, lateral and oblique radiographic images acquired of the left foot. LIMITATIONS: None. FINDINGS: MINERALIZATION: Normal. BONES: There is a transverse fracture of the base of the 5th metatarsal. There is fracture of the ba se of the 2nd metatarsal. There is widening of the space between the 1st and 2nd metatarsals. There is medial displacement of the base of the 1st metatarsal. JOINTS: No effusions. SOFT TISSUES: No soft tissue swelling. No foreign body. OTHER: No other significant finding. IMPRESSION: Lisfranc injury with fractures as described. TECHNICAL DOCUMENTATION: JOB ID: [id number] [employer]- All Rights Reserved Reading location - IP/workstation name: [email or web address]
--- NOTE | 2018-07-13 20:03 | ER Document Report ---
ED Extremity Problem, Lower - General Chief Complaint: Foot Injury Stated Complaint: FOOT INJURY Time Seen by Provider: 07/13/18 17:11 Primary Care Provider: LOY JONAS MD [NO LOCAL MD] - Follow up as needed Mode of Arrival: Wheelchair Notes: 68-year-old male to the emergency department chief complaint of "I need to be seen by the orthopedic surgeon to have my foot fix". Patient was seen here approximately a week ago and diagnosed with a Lisfranc fracture. Did not see the recommended orthopedic surgeon in follow-up. States that his splint is wet and needs it changed as well. States that he is already complained to the hospital administration because he was not transferred immediately. Patient had initially presented to the ER stating that he thinks maybe he hurt his foot about a week prior to coming to the ER the first time. Patient was seen and evaluated and treated and follow-up information was given for orthopedic surgery. Patient states that he went to a different orthopedic surgeon and stated that he needed to go to the initial orthopedic surgeon who had been recommended as he was not a specialist in this particular area of orthopedics. TRAVEL OUTSIDE OF THE [place] IN LAST 30 DAYS: No - HPI Location: Foot Severity: Mild Pain Level: 0 - Related Data Allergies/Adverse Reactions: No Known Allergies Allergy (Verified 07/13/18 16:36) Past Medical History - General Information source: Patient - Social History Smoking Status: Former Smoker Frequency of alcohol use: None Drug Abuse: None Lives with: Spouse/Significant other Family History: Reviewed & Not Pertinent Patient has suicidal ideation: No Patient has homicidal ideation: No - Past Medical History Cardiac Medical History: Reports: Hx Hypercholesterolemia, Hx Hypertension Denies: Hx Coronary Artery Disease, Hx Heart Attack Pulmonary Medical History: Reports: Hx Asthma - CHILD Denies: Hx Bronchitis, Hx COPD, Hx Pneumonia Neurological Medical History: Denies: Hx Cerebrovascular Accident, Hx Seizures Endocrine Medical History: Reports: Hx Diabetes Mellitus Type 2 Renal/ Medical History: Denies: Hx Peritoneal Dialysis GI Medical History: Denies: Hx Hepatitis, Hx Hiatal Hernia, Hx Ulcer Musculoskeletal Medical History: Reports Hx Arthritis - B/L SHOULDERS Infectious Medical History: Denies: Hx Hepatitis Past Surgical History: Denies: Hx Open Heart Surgery, Hx Pacemaker - Immunizations Hx Diphtheria, Pertussis, Tetanus Vaccination: Yes Hx Pneumococcal Vaccination: 03/30/14 Review of Systems - Review of Systems Constitutional: denies: Fever, Malaise, Weakness Cardiovascular: denies: Chest pain, Palpitations, Heart racing Respiratory: denies: Cough, Hurts to breathe, Short of breath Musculoskeletal: Other - Foot fracture as described in HPI. denies: Back pain, Joint pain Skin: denies: Dryness, Lesions, Rash Neurological/Psychological: Numbness. denies: Weakness, Paralysis Physical Exam - Vital signs Vitals: Temp Pulse Resp BP Pulse Ox 99.2 F 93 15 164/81 H 95 07/13/18 16:44 07/13/18 16:44 07/13/18 16:44 07/13/18 16:44 07/13/18 16:44 Interpretation: Normal - General General appearance: Appears well, Alert - Respiratory Respiratory status: No respiratory distress Chest status: Nontender Breath sounds: Normal Chest palpation: Normal - Cardiovascular Rhythm: Regular Heart sounds: Normal auscultation Murmur: No - Extremities General upper extremity: Normal inspection, Nontender, Normal color, Normal ROM, Normal temperature General lower extremity: Other - Right lower extremity unremarkable. Left lower extremity with splint in place. Neurovascularly intact. Capillary refill intact.. No: Yesica's sign Course - Re-evaluation Re-evalutation: 07/13/18 20:01 Repeat x-rays have been performed. No significant change. Patient was given adequate discharge instructions prior on the previous visit by Dr. London but he failed to follow-up with the orthopedic surgeon who was provided for follow-up appointment. Apparently Dr. Russell informed him as well that there were no surgeons at this hospital that could fix him but he was still wanted to be seen today. I spoke with him in triage informing him that there would be very little that could be done for him today and I did not want to waste his time but he insisted on continuing on with the full ER visit today. His emergency evaluation was performed in room 36 today. This is not a life or limb threatening injury at this time. Patient needs to make his own follow-up. At this time I have resplinted him in a new clean splint and given him a walking/postop shoe. This is a completely nonweightbearing injury however patient was observed walking on this foot in the ER so I am trying to give him some sort of extra support for when he continues to walk on this foot.. I have strongly advised him to make his appointments with the orthopedic surgeon as previously advised as there is nothing that we have done wrong or can do at this time to help him any further. I am not transferring this patient which would be completely inappropriate. There is no emergency medical problem at this time. I am not doubting that the patient needs to be seen by qualified clerical specialist however there is no emergency that I can help him out with at this time. I Have written him a prescription for a walking boot because he continues to walk on the foot. 07/13/18 20:03 Ankle X-Ray 07/13/18 17:25 IMPRESSION: 5th metatarsal fracture. Foot X-Ray 07/13/18 17:25 IMPRESSION: Lisfranc injury with fractures as described. 07/13/18 20:27 - Vital Signs Vital signs: Temp Pulse Resp BP Pulse Ox 99.2 F 93 15 164/81 H 95 07/13/18 16:44 07/13/18 16:44 07/13/18 16:44 07/13/18 16:44 07/13/18 16:44 Discharge - Discharge Clinical Impression: Lisfranc fracture Condition: Good Disposition: HOME, SELF-CARE Additional Instructions: Please use crutches. No weight bearing to the affected foot. Please make an appointment with the orthopedic surgeons as instructed as this will require outpatient follow-up. It may take several weeks for you to get an appointment. Until then it is still non weight bearing. Prescriptions: Walker [Ultra-Light Rollator] 1 each MC DAILY #1 each Referrals: LOY JONAS MD [NO LOCAL MD] - Follow up as needed
== END 2018-07-13 20:01 | disposition home or self-care (01) ==
LOC: ER 16:36
DX: S92.322D Displaced fracture of second metatarsal bone, left foot, subsequent encounter for fracture with routine healing (principal); S92.352D Displaced fracture of fifth metatarsal bone, left foot, subsequent encounter for fracture with routine healing; X58.XXXD Exposure to other specified factors, subsequent encounter
CPT/HCPCS: 99283

== ENCOUNTER → 2018-08-10 | Outpatient (CLI) | payer OTHER ==
--- NOTE | 2018-08-10 15:46 | RADIOLOGY REPORT (SQ) ---
EXAM DESCRIPTION: CT LT LOWER EXTREMITY WITHOUT COMPLETED DATE/TIME: 08/10/2018 2:16 pm REASON FOR STUDY: S92.902A UNSP FRACTURE OF LEFT FOOT, INIT ENCNTR FOR CLOSED FRACTURE S92.902A UNS P FRACTURE OF LEFT FOOT, INIT ENCNTR FOR CLOSED COMPARISON: Prior left foot and ankle plain films 07/07/2018, 07/13/2018 TECHNIQUE: CT scan of the left ankle performed without intravenous contrast. Images reviewed with s oft tissue and bone windows. Reconstructed coronal and sagittal MPR images reviewed. Additional 3D shaded surface display images were generated on an independent workstation and saved pac's. All imag es stored on PACS. All CT scanners at this facility use dose modulation, iterative reconstruction, and/or weight based d osing when appropriate to reduce radiation dose to as low as reasonably achievable (ALARA). [facility]: Dose Right [facility]: CareDose [facility]: Dose Right [facility]: Teradose 4D [facility]: [employer] RADIATION DOSE: CT Rad equipment meets quality standard of care and radiation dose reduction techniq ues were employed. CTDIvol: 4.6 mGy. DLP: 131 mGy-cm. mGy. LIMITATIONS: None. FINDINGS: The patient has a lisfranc deformity with subacute fracture-dislocations at the tarsometat arsal joints. There is medial and dorsal dislocation of the base of the 1st metatarsal with respect to the medial c uneiform. This is best shown on shaded surface display images and on sagittal reconstruction images 14-18. The adjacent tibialis anterior tendon has massive amount of fluid in its tendon sheath, with avulsion bony fragments at its distal attachment of the 1st metatarsal/ medial cuneiform best shown o n axial images 36-48. Subacute lisfranc deformities with lateral subluxation of the bases of the 2nd through 5th metatarsal s aspect of the tarsal bones is present, best shown on shaded surface display. There are nonunited fractures at the base of the 4th and 5th metatarsals best shown on sagittal recon struction images 32-37. Remainder of the study demonstrates a 1 cm subcortical cyst/osteochondral defect in the anterolateral talus, and an old healed distal fibular fracture. IMPRESSION: Subacute lisfranc fracture/dislocations at that 1st through 5th tarsometatarsal joints. 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
== END ==
LOC: RAD 13:10
PROVIDERS: ATTEND Nurse Practitioner Family
DX: S92.352D Displaced fracture of fifth metatarsal bone, left foot, subsequent encounter for fracture with routine healing (principal); S92.352K Displaced fracture of fifth metatarsal bone, left foot, subsequent encounter for fracture with nonunion; X58.XXXD Exposure to other specified factors, subsequent encounter

== ENCOUNTER 2019-12-25 07:58 | Emergency (ER) | payer OTHER ==
[2019-12-25 09:26] LABS: ABSOLUTE EOSINOPHILS # (AUTO) 0.2 10^3/uL (0.0-0.6); ABSOLUTE LYMPHOCYTES (AUTO) 2.2 10^3/uL (0.5-4.7); ABSOLUTE MONOCYTES (AUTO) 0.7 10^3/uL (0.1-1.4); ABSOLUTE NEUT (AUTO) 6.6 10^3/uL (1.7-8.2); BASOPHILS % (AUTO) 0.3 % (0-2); EOSINOPHILS % (AUTO) 2.1 % (0-6); HEMATOCRIT 37.3 % (37.9-51.0); HEMOGLOBIN 12.4 g/dL (13.5-17.0); LYMPHOCYTES % (AUTO) 23.2 % (13-45); MEAN CORPUSCULAR HEMOGLOBIN 32.2 pg (27.0-33.4); MEAN CORPUSCULAR HGB CONC 33.2 g/dL (32.0-36.0); MEAN CORPUSCULAR VOLUME 97 fl (80-97); MONOCYTES % (AUTO) 6.8 % (3-13); PLATELET COUNT 257 10^3/uL (150-450); RED BLOOD COUNT 3.84 10^6/uL (4.35-5.55); RED CELL DISTRIBUTION WIDTH 14.9 % (11.5-14.0); SEGMENTED NEUTROPHILS % (AUTO) 67.6 % (42-78); TOTAL CELLS COUNTED % (AUTO) 100 %; WHITE BLOOD COUNT 9.7 10^3/uL (4.0-10.5)
--- NOTE | 2019-12-25 09:39 | ER Document Report ---
ED General - General Chief Complaint: Shortness Of Breath Stated Complaint: SYNCOPE,SHORTNESS OF BREATH Time Seen by Provider: 12/25/19 08:33 Primary Care Provider: EVY HAWTHORNE FNP [Primary Care Provider] - Follow up as needed Notes: 69-year-old gentleman with a history of "normal cath" but who takes Lasix for CHF presents with worsening fatigue shortness of breath dyspnea exertion orthopnea leg swelling and discomfort. Is been going on for 2 weeks but is gotten worse. His urine output is come down. He has no chest pain or chest pressure nor has he in the last few weeks, has no cough or fever no loss of ta zainab or smell TRAVEL OUTSIDE OF THE [place] IN LAST 30 DAYS: No - Related Data Allergies/Adverse Reactions: No Known Allergies Allergy (Verified 07/13/18 16:36) Past Medical History - General Information source: Patient - Social History Smoking Status: Unknown if Ever Smoked Family History: Reviewed & Not Pertinent - Past Medical History Cardiac Medical History: Reports: Hx Hypercholesterolemia, Hx Hypertension Denies: Hx Coronary Artery Disease, Hx Heart Attack Pulmonary Medical History: Reports: Hx Asthma - CHILD Denies: Hx Bronchitis, Hx COPD, Hx Pneumonia Neurological Medical History: Denies: Hx Cerebrovascular Accident, Hx Seizures Endocrine Medical History: Reports: Hx Diabetes Mellitus Type 2 Renal/ Medical History: Denies: Hx Peritoneal Dialysis GI Medical History: Denies: Hx Hepatitis, Hx Hiatal Hernia, Hx Ulcer Musculoskeletal Medical History: Reports Hx Arthritis - B/L SHOULDERS Infectious Medical History: Denies: Hx Hepatitis Past Surgical History: Denies: Hx Open Heart Surgery, Hx Pacemaker - Immunizations Hx Diphtheria, Pertussis, Tetanus Vaccination: Yes Hx Pneumococcal Vaccination: 03/30/14 Review of Systems - Review of Systems Notes: REVIEW OF SYSTEMS GEN: Denies fever, chills, weight loss ENT: Denies sore throat, nasal discharge, ear pain EYES: Denies blurry vision, eye pain, discharge CV: Denies chest pain, palpitations, edema RESP: Dyspnea orthopnea GI: Denies abdominal pain, nausea, vomiting, diarrhea MSK: Denies joint pain/swelling, edema, SKIN: Denies rash, skin lesions LYMPH: Denies swollen glands/lymph nodes NEURO: Denies headache, focal weakness or numbness, dizziness PSYCH: Denies depression, suicidal or homicidal ideation PHYSICAL EXAMINATION General: No acute distress, well-nourished Head: Atraumatic, normocephalic ENT: Mouth normal, oropharynx moist, no exudates or tonsillar enlargement Eyes: Conjunctiva normal, pupils equal, lids normal Neck: No JVD, supple, no guarding CVS: Normal rate, regular rhythm, no murmurs Resp: Crackles diminished both bases erally GI: Painless abdominal distention with no tenderness or fluid wave ng Ext: 2+ pitting edema wer ext Back: No CVA or midline TTP Skin: No rash, warm Lymphatic: No lymphadeopathy noted Neuro: Awake, alert. Face symmetric. GCS 15. Physical Exam - Vital signs Vitals: Temp Pulse Resp BP Pulse Ox 98.2 F 107 H 18 149/78 H 95 12/25/19 08:04 12/25/19 08:04 12/25/19 08:04 12/25/19 08:04 12/25/19 08:04 Course - Re-evaluation Re-evalutation: 12/25/19 09:38 Orthopnea and weight gain in a patient with known CHF likely reflects volume overload although not acute We will check labs EKG chest x-ray. Covid less likely pneumonia less likely no evidence of sepsis or ACS 12/25/19 14:03 Patient's ECG shows a block but nothing significant in terms of ischemia. He does have elevated BNP and I am concerned mostly for decompensated heart failure. I discussed his case with the hospitalist for admission Subsequently the nurse to me the patient wants to leave. By the time I had a chance to go visit him he had eloped from the department apparently with a steady gait and normal vital signs per the nurses. - Vital Signs Vital signs: Temp Pulse Resp BP Pulse Ox 98.2 F 107 H 17 159/88 H 99 12/25/19 08:04 12/25/19 08:04 12/25/19 11:20 12/25/19 11:20 12/25/19 11:20 - Laboratory Result Diagrams: 12/25/19 09:08 12/25/19 09:08 Laboratory results interpreted by me: 12/25/19 12/25/19 12/25/19 08:51 09:08 09:08 RBC 3.84 L Hgb 12.4 L Hct 37.3 L RDW 14.9 H BUN 21 H Glucose 122 H POC Glucose 126 H Alkaline Phosphatase 36 L NT-Pro-B Natriuret Pep Urine Protein Ur Leukocyte Esterase 12/25/19 12/25/19 09:08 10:00 RBC Hgb Hct RDW BUN Glucose POC Glucose Alkaline Phosphatase NT-Pro-B Natriuret Pep 6010 H Urine Protein 100 H Ur Leukocyte Esterase TRACE H - Diagnostic Test Radiology reviewed: Image reviewed, Reports reviewed - EKG Interpretation by Me EKG shows normal: Sinus rhythm Rate: Normal, Tachycardia Rhythm: NSR - No significant T wave or ST changes, PVC's When compared to previous EKG there are: Previous EKG unavailable - PVCs on a background of sinus tach with borderline prolonged QRS Discharge - Discharge Clinical Impression: CHF exacerbation Qualifiers: Heart failure type: unspecified Qualified Code(s): I50.9 - Heart failure, unspecified Condition: Good Disposition: AGAINST MEDICAL ADVICE Admitting Provider: Evelyn (Hospitalist) Unit Admitted: Telemetry Referrals: EVY HAWTHORNE FNP [Primary Care Provider] - Follow up as needed
[2019-12-25 09:44] LABS: ALBUMIN 4.5 g/dL (3.5-5.0); ALKALINE PHOSPHATASE 36 U/L (38-126); ANION GAP 14 (5-19); ASPARTATE AMINO TRANSFERASE 37 U/L (17-59); BILIRUBIN,DIRECT 0.2 mg/dL (0.0-0.4); BLOOD UREA NITROGEN 21 mg/dL (7-20); CARBON DIOXIDE 29 mmol/L (22-30); CHLORIDE 100 mmol/L (98-107); CREATINE KINASE 161 U/L (55-170); GLUCOSE 122 mg/dL (75-110); POTASSIUM 4.3 mmol/L (3.6-5.0); TOTAL PROTEIN 7.9 g/dL (6.3-8.2)
[2019-12-25 09:56] LABS: CREATINE KINASE MB 3.68 ng/mL (<4.55)
[2019-12-25 10:02] LABS: TROPONIN I 0.075 ng/mL
[2019-12-25 10:37] LABS: APPEARANCE,URINE CLEAR; BILIRUBIN,URINE NEGATIVE (NEGATIVE); COLOR,URINE YELLOW; GLUCOSE, URINE NEGATIVE (NEGATIVE); KETONES,URINE NEGATIVE (NEGATIVE); LEUKOCYTE ESTERASE,URINE TRACE (NEGATIVE); NITRITE,URINE NEGATIVE (NEGATIVE); PROTEIN,URINE 100 mg/dL (NEGATIVE); UROBILINOGEN,URINE NEGATIVE mg/dL (<2.0)
[2019-12-25] MEDS ORDERED: FUROSEMIDE INJ/PF 40 MG/4 ML SDV IV ONE (10:58)
[2019-12-25 11:28] VITALS: BP 159/88
--- NOTE | 2019-12-25 11:36 | RADIOLOGY REPORT (SQ) ---
EXAM DESCRIPTION: CHEST SINGLE VIEW IMAGES COMPLETED DATE/TIME: 12/25/2019 11:27 am REASON FOR STUDY: vol overload COMPARISON: None. EXAM PARAMETERS: NUMBER OF VIEWS: One view. TECHNIQUE: Single frontal radiographic view of the chest acquired. RADIATION DOSE: NA LIMITATIONS: None. FINDINGS: LUNGS AND PLEURA: Possible fluid along the right minor fissure versus atelectasis. No con solidation. No effusions. MEDIASTINUM AND HILAR STRUCTURES: No masses. Contour normal. HEART AND VASCULAR STRUCTURES: Cardiomegaly. No overt failure. BONES: No acute findings. HARDWARE: None in the chest. OTHER: No other significant finding. IMPRESSION: Cardiomegaly. No overt failure. No consolidation. TECHNICAL DOCUMENTATION: JOB ID: [id number] 2010 [employer]- All Rights Reserved Reading location - IP/workstation name: [email or web address]
--- NOTE | 2019-12-25 12:50 | EKG REPORT ---
SEVERITY:- ABNORMAL ECG - SINUS TACHYCARDIA VENTRICULAR TRIGEMINY BORDERLINE IVCD WITH LAD PROBABLE INFERIOR INFARCT, OLD BORDERLINE R WAVE PROGRESSION, ANTERIOR LEADS BORDERLINE PROLONGED QT INTERVAL : Confirmed by: Vineet Lyon MD 25-Dec-2019 12:49:24
== END 2019-12-25 12:06 | disposition left against medical advice (07) ==
LOC: ER 07:58
DX: I11.0 Hypertensive heart disease with heart failure (principal); I50.9 Heart failure, unspecified; R06.02 Shortness of breath; R53.83 Other fatigue; R06.00 Dyspnea, unspecified; R06.01 Orthopnea; M79.89 Other specified soft tissue disorders; J45.909 Unspecified asthma, uncomplicated; E11.9 Type 2 diabetes mellitus without complications; Z53.20 Procedure and treatment not carried out because of patient's decision for unspecified reasons
CPT/HCPCS: 93005; 99281; 96374; 36415; 82553; 82962; 82550; 85025; 80053; 81001; 84484; 83880; 71045; 93010; J1940